=== PATIENT | female | born 1935 | race Caucasian/White ===

== ENCOUNTER 2021-12-26 12:09 | Inpatient (IN) | payer MEDICARE, OTHER ==
[~2021-12-26 12:09] MED LIST: Iopamidol 370 76% 100 ML VIAL ONE
[2021-12-26 12:24] LABS: #Basophils 0.1 thou/uL (0.0-0.2); #Eosinphils 0.3 thou/uL (0.0-0.7); #Lymphocytes 2.9 thou/uL (1.20-3.40); #Monocytes 0.6 thou/uL (0.11-0.59); #Neutrophils 3.7 thou/uL (1.40-6.50); %Basophils 1.1 % (0.0-1.0); %Eosinophils 4.4 % (0.0-10.0); %Lymphocytes 37.8 % (21.0-51.0); %Monocytes 7.9 % (0.0-10.0); %Neutrophils 48.8 % (42.0-75.0); Hemoglobin 15.9 g/dL (12.0-16.0); Mean Corpuscular HGB CONC 35.2 g/dL (32.0-36.0); Mean Corpuscular Hemoglobin 35.4 pg (27.0-31.0); Mean Platelet Volume 7.5 fL (7.4-10.4); Platelet Count 228 thou/uL (130-400); RBC Distribution Width 11.1 % (11.5-14.5); White Blood Cell (WBC) Count 7.6 thou/uL (4.8-10.8)
[2021-12-26 12:33] LABS: PTT 33.1 sec (22.9-36.1); Prothrombin Time 13.5 sec (12.0-14.7)
[2021-12-26 12:44] LABS: ALT (SGPT) 22 U/L (8-55); AST (SGOT) 32 U/L (5-34); Albumin 3.8 g/dL (3.4-4.8); Alkaline Phosphatase 50 U/L (40-110); Anion Gap 17 mmol/L (10-20); BUN (Urea Nitrogen) 16 mg/dL (9.8-20.1); Bilirubin, Total 0.5 mg/dL (0.2-1.2); Calc. Creatinine Clearance 0 mL/min (70-130); Calcium 9.4 mg/dL (7.8-10.44); Carbon Dioxide 21 mmol/L (23-31); Chloride 105 mmol/L (98-107); Globulin 3.2 g/dL (2.4-3.5); Glucose 100 mg/dL (83-110); Potassium 4.3 mmol/L (3.5-5.1); Sodium 139 mmol/L (136-145)
[2021-12-26] MEDS ORDERED: Ondansetron PF 4 MG/2 ML Vial IVP PRN (14:07)
[2021-12-26] MEDS ORDERED: Acetaminophen 325 MG TAB PO PRN (14:07)
[2021-12-26] MEDS ORDERED: hydrALAZINE 20 MG/ML VIAL SLOW IVP PRN (14:07)
[2021-12-26] MEDS ORDERED: Aspirin 81 mg Enteric Coated Tablet PO SCH (14:15)
[2021-12-26] MEDS ORDERED: Enoxaparin Sodium 40 MG/0.4 ML SYRINGE SC SCH (14:15)
[2021-12-26 16:50] LABS: Bacteria/HPF None Seen HPF (None Seen); Bilirubin Negative (Negative); Blood, Urine Negative (Negative); Clarity Clear (Clear); Glucose, Urine (Dipstick) Normal (Negative); Ketone, Urine 10 mg/dL (Negative); Leukocyte Negative Leu/uL (Negative); Nitrite Negative (Negative); Protein, Urine (Dipstick) Negative (Neg-Trace); RBC/HPF 0-3 HPF (0-3); Squamous Epithelial 0-3 HPF (0-3); Urobilinogen Normal mg/dL (Less than 2); WBC/HPF 0-3 HPF (0-3)
[2021-12-26 16:51] LABS: Specific Gravity, Urine 1.048 (1.002-1.036)
[2021-12-26 16:52] LABS: Urine Culture Reflex No No
[2021-12-26 17:18] VITALS: BMI 29.4
[2021-12-26] MEDS: Atorvastatin Calcium 40 MG TAB PO SCH (21:46)
[2021-12-27 00:13] LABS: SARS-CoV-2 PCR by NAA DETECTED (NotDetected)
[2021-12-27] MEDS ORDERED: Cholecalciferol (Vitamin D3) 400 UNITS TAB PO SCH (00:30)
[2021-12-27] MEDS ORDERED: Zinc Sulfate 220 MG CAP PO SCH (00:30)
[2021-12-27] MEDS ORDERED: Ascorbic Acid 500 mg Chewable Tablet PO SCH (00:30)
[2021-12-27 06:08] LABS: Cardiac Risk 2.8 (Less than 4.5)
[2021-12-27] MEDS: Zinc Sulfate 220 MG CAP PO SCH (08:46)
[2021-12-27] MEDS: Enoxaparin Sodium 40 MG/0.4 ML SYRINGE SC SCH (08:46)
[2021-12-27] MEDS: Ascorbic Acid 500 mg Chewable Tablet PO SCH (08:46)
[2021-12-27] MEDS: Aspirin 81 mg Enteric Coated Tablet PO SCH (08:47)
[2021-12-27] MEDS: Cholecalciferol (Vitamin D3) 400 UNITS TAB PO SCH (08:47)
[2021-12-27] MEDS: Losartan 25 MG TAB PO SCH (08:49)
[2021-12-27] MEDS: Atorvastatin Calcium 40 MG TAB PO SCH (20:59)
[2021-12-28] MEDS: Enoxaparin Sodium 40 MG/0.4 ML SYRINGE SC SCH (10:14)
[2021-12-28] MEDS: Zinc Sulfate 220 MG CAP PO SCH (10:15)
[2021-12-28] MEDS: Aspirin 81 mg Enteric Coated Tablet PO SCH (10:15)
[2021-12-28] MEDS: Ascorbic Acid 500 mg Chewable Tablet PO SCH (10:15)
[2021-12-28] MEDS: Losartan 25 MG TAB PO SCH (10:15)
[2021-12-28] MEDS: Cholecalciferol (Vitamin D3) 400 UNITS TAB PO SCH (10:16)
[2021-12-28] MEDS ORDERED: Polyvinyl Alcohol 1.4%/Povidone 0.6% Opth Drops EA EYE SCH (17:00)
[2021-12-28] MEDS: Polyvinyl Alcohol 1.4%/Povidone 0.6% Opth Drops EA EYE SCH ×2 (17:20→21:07)
[2021-12-28] MEDS: Atorvastatin Calcium 40 MG TAB PO SCH (21:02)
[2021-12-29] MEDS: Enoxaparin Sodium 40 MG/0.4 ML SYRINGE SC SCH (08:46)
[2021-12-29] MEDS: Losartan 25 MG TAB PO SCH (08:47)
[2021-12-29] MEDS: Cholecalciferol (Vitamin D3) 400 UNITS TAB PO SCH (08:47)
[2021-12-29] MEDS: Aspirin 81 mg Enteric Coated Tablet PO SCH (08:47)
[2021-12-29] MEDS: Ascorbic Acid 500 mg Chewable Tablet PO SCH (08:47)
[2021-12-29] MEDS ORDERED: prednisoLONE 1% Ophth Susp 5 ml Bottle L EYE SCH (09:00)
[2021-12-29] MEDS ORDERED: Docusate 100 MG CAP PO SCH (09:00)
[2021-12-29] MEDS: Zinc Sulfate 220 MG CAP PO SCH (10:28)
[2021-12-29] MEDS: Polyvinyl Alcohol 1.4%/Povidone 0.6% Opth Drops EA EYE SCH (10:28)
[2021-12-29 11:58] VITALS: BP 133/79; TEMP 97.7
== END 2021-12-29 16:28 | disposition home or self-care (01) | DRG 177 ==
LOC: ERS 12:09 → NEURO 14:07 → OBSVTOIN 12-28 15:23
PROVIDERS: ADMIT Internal Medicine; ATTEND Family Medicine
PROC: 8E0ZXY6 Isolation (ICD-10-PCS; principal; 2021-12-28)
DX: U07.1 COVID-19 (principal); G93.41 Metabolic encephalopathy; Z66 Do not resuscitate; I10 Essential (primary) hypertension; E78.5 Hyperlipidemia, unspecified; I16.0 Hypertensive urgency; D75.89 Other specified diseases of blood and blood-forming organs; M19.90 Unspecified osteoarthritis, unspecified site; K21.9 Gastro-esophageal reflux disease without esophagitis; K59.00 Constipation, unspecified; Z96.653 Presence of artificial knee joint, bilateral; Z88.0 Allergy status to penicillin; R40.4 Transient alteration of awareness; Z85.820 Personal history of malignant melanoma of skin; Z90.710 Acquired absence of both cervix and uterus; Z90.49 Acquired absence of other specified parts of digestive tract; Z88.5 Allergy status to narcotic agent; Z91.013 Allergy to seafood; Z79.890 Hormone replacement therapy
CPT/HCPCS: 36415; 70450; 70496; 70498; 70551; 71045; 80053; 80061; 81001; 83605; 84145; 84146; 84484; 85025; 85610; 85730; 86140; 93005; 94760; 96372; G0378; J1650; Q9967; U0003; U0005